=== PATIENT | male | born 1970 | race African-American/Black ===

== ENCOUNTER 2016-06-06 08:04 | Emergency (ER) | payer OTHER ==
[~2016-06-06] VITALS: Ht 182.9 cm; Wt 86.2 kg
[~2016-06-06 08:04] MED LIST: ACETAMINOPHEN500 M3 ORAL; ALBUTEROL SULF8.5 GM INH; AZITHROMYCIN250 MG ORAL; AZITHROMYCIN250 MG PO; GARAMYCIN 0.3%1 DROP BOTH EYES; IBUPROFEN600 MG ORAL; NKM; NORCO 5-325 TA1 EACH ORAL; PHENERGAN/CODE120 ML PO; PROMETHAZINE-C118 M1 ORAL
[2016-06-06] MEDS ORDERED: NKM (08:16)
--- NOTE | 2016-06-06 08:36 | Emergency Room Report ---
History of Present Illness General Chief Complaint: Lower Extremity Injury Source: Patient Present Illness HPI Yesterday the patient twisted his right knee while bending it. He had immediate pain there. He said pain has persisted through the night. He tried taking a bath to help the pain. He is not take any medication. Pain does not radiate. It is mainly on the inside of the knee. There is no significant swelling. He denies any previous injury to his knee. Pain reported 10/10, constant, sharp, not radiating. Drove himself here. No fevers, h/o gout, trauma. No numbness, rash. Sheyla. 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 Nursing Documentation: PMH: Agreed, PSxH: Agreed Nursing Documentation-PMH Past Medical History: No Stated History Review of Systems All Other Systems: negative except mentioned in HPI Physical Exam Vital Signs Date Time Temp Pulse Resp B/P Pulse Ox O2 Delivery O2 Flow Rate FiO2 06/06/16 08:16 98.2 70 16 132/82 99 Sp02 EP Interpretation: reviewed, normal General Appearance: well appearing, no apparent distress Head: normocephalic, atraumatic Eyes: bilateral eye PERRL, bilateral eye normal inspection ENT: hearing grossly normal, normal voice, moist mucus membranes Neck: full range of motion, supple Respiratory: no respiratory distress, speaking full sentences Gastrointestinal: normal inspection Musculoskeletal: back normal, no calf tenderness, pelvis stable, decreased range of mation - R knee, hip and ankle not tender and good ROM, other - neg drawer, neg applies, + medial ligament min lax with meiniscus ten, lateral min tend, no effusion Neurologic: alert, motor strength/tone normal, sensory intact, speech normal Psychiatric: mood/affect normal Skin: no rash Medical Decision Making Diagnostic Impression: Primary Impression: Medial meniscus tear Qualified Codes: S83.241A - Other tear of medial meniscus, current injury, right knee, initial encounter ER Course Patient with pain with twist of knee. Ddx; fracture, sprain, tear, contusion amongst others. xray indicated. Exam is consistent with a medial meniscus tear. Analgesia given, though limited due to driving self. Knee immobilizer placed by tech. Position and application excellent with improvement. Neurovasc checked by me and normal. Told to remove if driving ( advised not to drive). Patient stable for outpatient observation and treatment. Other X-Ray Diagnostic Results Other X-Ray Diagnostic Results : X-Ray Ordered: R knee EP Interpretation: Yes Findings: no fractures, no dislocation, no soft tissue swelling, other - bony bodies, laterally Number of Views: 3 Last Vital Signs Date Time Temp Pulse Resp B/P Pulse Ox O2 Delivery O2 Flow Rate FiO2 06/06/16 09:53 98.3 65 16 125/75 99 Room Air Status: improved Disposition: HOME, SELF-CARE Condition: Improved Scripts Tramadol Hcl* (ULTRAM*) 50 Mg Tablet 50 MG ORAL Q6H Y for For Pain, #6 TAB 0 Refills Prov: Ezra Rodrigez M.D. 06/06/16 Ibuprofen* (MOTRIN*) 600 Mg Tablet 600 MG ORAL Q6H Y for For Pain, #20 TAB Prov: Ezra Rodrigez M.D. 06/06/16 Ezra Rodrigez M.D. Jun 06, 2016 08:36
[2016-06-06 09:30] VITALS: BP 125/75
[2016-06-06] MEDS ORDERED: TRAMADOL HCL50 MG ORAL (09:47)
[2016-06-06] MEDS ORDERED: IBUPROFEN600 MG ORAL (09:47)
[2016-06-06 09:53] VITALS: BP 125/75
--- NOTE | 2016-06-06 13:55 | Diagnostic Imaging Report ---
Indications: TRAUMA Technique: Three views of the knee Comparison: None Findings: No acute fractures. No dislocations. Joint spaces are preserved. No radiopaque foreign body. Normal mineralization. Vascular calcifications are incidentally noted Impression: No acute process This agrees with the preliminary interpretation provided by the emergency room physician
== END 2016-06-06 09:53 | disposition home or self-care (01) ==
LOC: EMR 08:56
DX: S83.241A Other tear of medial meniscus, current injury, right knee, initial encounter (principal); F17.200 Nicotine dependence, unspecified, uncomplicated; X58.XXXA Exposure to other specified factors, initial encounter; Y92.9 Unspecified place or not applicable; Y99.8 Other external cause status
CPT/HCPCS: 29530; 99284

== ENCOUNTER 2017-03-21 07:30 | Emergency (ER) | payer OTHER ==
[~2017-03-21] VITALS: Ht 188 cm; Wt 86.2 kg
[~2017-03-21 07:30] MED LIST changes: +TRAMADOL HCL50 MG ORAL
[2017-03-21] MEDS ORDERED: LIDOCAINE VISC100 ML ORAL (08:27)
[2017-03-21] MEDS ORDERED: 12 HOUR NASAL R15 ML NASAL (08:27)
[2017-03-21] MEDS ORDERED: ADULT WAL-100 MG/5 M ORAL (08:27)
[2017-03-21] MEDS ORDERED: Lidocaine 2% Visc 15ml soln ORAL ONE (08:30)
[2017-03-21 08:45] VITALS: BP 156/78
--- NOTE | 2017-03-26 10:09 | Emergency Room Report ---
History of Present Illness General Chief Complaint: Upper Respiratory Illness Source: Patient Present Illness HPI Patient is a 46-year-old male presented after increased sore throat associated with increased nasal congestion nonproductive cough for the past 2 days. Patient reported having prior episodes of similar symptoms. He reports having some sick contacts at home. He denies any severe headache. He had episode of posttussive emesis. He denied any diarrhea. The patient reports having a moderately sore throat. Allergies: Coded Allergies: No Known Allergies (Unverified , 05/07/12) Patient History Past Medical History: see triage record Reviewed Nursing Documentation: PMH: Agreed, PSxH: Agreed Nursing Documentation-PMH Past Medical History: No Stated History Review of Systems All Other Systems: negative except mentioned in HPI Physical Exam Vital Signs Date Time Temp Pulse Resp B/P (MAP) Pulse Ox O2 Delivery O2 Flow Rate FiO2 03/21/17 07:32 97.7 54 14 150/83 98 Room Air General Appearance: well appearing, no apparent distress, alert, GCS 15 Head: normocephalic, atraumatic ENT: normal ENT inspection, hearing grossly normal, normal pharynx, normal voice, uvula midline, moist mucus membranes, dry mucus membranes Neck: full range of motion, supple Respiratory: chest non-tender, lungs clear, normal breath sounds, no respiratory distress, speaking full sentences Musculoskeletal: no calf tenderness Neurologic: normal gait Psychiatric: mood/affect normal Skin: no rash Medical Decision Making Diagnostic Impression: Primary Impression: Viral respiratory infection ER Course Patient presented for cough. Differential diagnosis included but was not limited to bronchitis, pneumonia, pulmonary embolism, pericarditis, asthma, foreign body. Patient's benign exam and does not appear to require any further imaging or laboratory testing at this time. The patient presented viral upper respiratory infection. The patient was given prescription for decongestants as well as medications for sore throat.The patient is advised to follow up with primary care doctor in 1-2 days. Patient is advised to return if any worsening condition or if any changes in status that are concerning. This report is dictated with [employer] cold type composing machine operator software which may occasionally lead to discrepancies related to use of this software. Last Vital Signs Date Time Temp Pulse Resp B/P (MAP) Pulse Ox O2 Delivery O2 Flow Rate FiO2 03/21/17 08:45 97.7 53 16 156/78 98 Room Air Status: improved Disposition: HOME, SELF-CARE Condition: Stable Scripts Guaifenesin* (ADULT WAL-TUSSIN*) 100 Mg/5 Ml Liquid 5 ML ORAL Q4H, #120 ML Prov: Shay San 03/21/17 Oxymetazoline Hcl* (12 HOUR NASAL RELIEF*) 15 Ml [place] 1 SPRAY NASAL TWICE A DAY for 2 Days, #1 SPRAY Prov: Shay San 03/21/17 Lidocaine HCl 2% Viscous (Lidocaine HCl 2% Viscous) 100 Ml Solution 15 ML ORAL QID, #120 ML Prov: Shay San 03/21/17 Patient Instructions: Upper Respiratory Infection, Adult Shay San Mar 26, 2017 10:09
== END 2017-03-21 08:45 | disposition home or self-care (01) ==
LOC: EMR 07:49
DX: J06.9 Acute upper respiratory infection, unspecified (principal); B97.89 Other viral agents as the cause of diseases classified elsewhere
CPT/HCPCS: 99283

== ENCOUNTER 2017-05-15 07:41 | Emergency (ER) | payer OTHER ==
[~2017-05-15] VITALS: Ht 185.4 cm; Wt 90.7 kg
[~2017-05-15 07:41] MED LIST changes: +12 HOUR NASAL R15 ML NASAL; +ADULT WAL-100 MG/5 M ORAL; +LIDOCAINE VISC100 ML ORAL
[2017-05-15 07:52] VITALS: BP 138/82
--- NOTE | 2017-05-15 08:12 | Emergency Room Report ---
History of Present Illness General Chief Complaint: Pain Source: Patient Present Illness HPI Patient presents with 2 months of left elbow pain. Sometimes wakes him up at night. When he extends it is improved the pain. He denies noting any trauma when this began. He also has some tingling because down to his hand. Sometimes he feels a hand somewhat locks up. He hasn't tried any medication for it. He somewhat concerned about his heart. He does smoke cigarettes. This is not exertional. He occasionally gets muscle spasms in the right shoulder. Pain rated 8/10, intermittent, elbow, medially, radiates to forearm and wrist. R handed. No fevers, dyspnea, NVD, dysuria, rashes. 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 Nursing Documentation: PMH: Agreed, PSxH: Agreed Nursing Documentation-PMH Past Medical History: No Stated History Review of Systems All Other Systems: negative except mentioned in HPI Physical Exam Vital Signs Date Time Temp Pulse Resp B/P (MAP) Pulse Ox O2 Delivery O2 Flow Rate FiO2 05/15/17 07:45 97.9 87 20 142/87 100 Room Air Sp02 EP Interpretation: reviewed, normal General Appearance: well appearing, no apparent distress Head: normocephalic, atraumatic Eyes: bilateral eye normal inspection, bilateral eye PERRL ENT: hearing grossly normal, normal voice, moist mucus membranes Neck: full range of motion, supple, no bony tend Respiratory: no respiratory distress, speaking full sentences Gastrointestinal: normal inspection, scaphoid Musculoskeletal: back normal, digits/nails normal, gait/station normal, normal range of motion, other - Left ulnar nerve tenderness with some tingling with tapping of the area. Neurologic: oriented x3, DTRs symmetric, sensory intact, speech normal, other - Radius, median and ulnar nerve functions are full however subjectively he feels a tingling in the ulnar distribution in the upper forearm. Psychiatric: mood/affect normal Skin: no rash Medical Decision Making Diagnostic Impression: Primary Impression: Cubital tunnel syndrome on left ER Course Patient presents with left elbow discomfort and tingling. Differential includes ulnar gutter (cubital) syndrome, bursitis, arthritis, gout amongst others. He's also concerned about his heart - risk factors are smoking an EKG will be obtained. An x-ray of the elbow be obtained patient will be treated with Motrin here. Xrays normal. EKG no acute changes (LVH). Improved with treatment. Discussed need for further evaluation and physical therapy. Patient stable for outpatient observation and treatment. EKG Diagnostic Results Rate: normal Rhythm: NSR ST Segments: no acute changes - LVH, LAE Rhythm Strip Diag. Results EP Interpretation: yes Rhythm: NSR, no PVC's, no ectopy Other X-Ray Diagnostic Results Other X-Ray Diagnostic Results : X-Ray ordered: L elbow # of Views/Limited Vs Complete: 3 View Indication: Other EP Interpretation: Yes Interpretation: no dislocation, no soft tissue swelling, no fractures Impression: No acute disease Electronically Signed by: Electronically signed by Ezra Rodrigez MD Last Vital Signs Date Time Temp Pulse Resp B/P (MAP) Pulse Ox O2 Delivery O2 Flow Rate FiO2 05/15/17 09:27 55 18 138/83 99 Room Air 05/15/17 09:10 97.8 Status: improved Disposition: HOME, SELF-CARE Condition: Improved Scripts Ibuprofen* (MOTRIN*) 600 Mg Tablet 600 MG ORAL Q6H Y for For Pain, #20 TAB Prov: Ezra Rodrigez M.D. 05/15/17 Ezra Rodrigez M.D. May 15, 2017 08:12
[2017-05-15] MEDS ORDERED: IBUPROFEN600 MG ORAL (08:58)
[2017-05-15 09:27] VITALS: BP 138/83
--- NOTE | 2017-05-15 10:49 | Diagnostic Imaging Report ---
Indications:Reason For Exam: PAIN Technique: Three or 4 views of the left elbow Comparison: None Findings: No acute fractures. No dislocations. The joint spaces are preserved Impression: Negative This agrees with the preliminary interpretation provided by the emergency room physician
--- NOTE | 2017-05-16 19:04 | Cardiology Report ---
APPROVED REPORT EKG Measurement Heart [id number] Normal sinus rhythm Possible Left atrial enlargement Left ventricular hypertrophy Abnormal ECG
== END 2017-05-15 09:27 | disposition home or self-care (01) ==
LOC: EMR 08:24
DX: G56.22 Lesion of ulnar nerve, left upper limb (principal)
CPT/HCPCS: 93005; 99283

== ENCOUNTER 2017-12-23 11:47 | Emergency (ER) | payer OTHER ==
[~2017-12-23] VITALS: Ht 190.5 cm; Wt 86.2 kg
[2017-12-23 12:06] VITALS: BP 121/72
[2017-12-23] MEDS ORDERED: IBUPROFEN600 MG ORAL (12:41)
[2017-12-23] MEDS ORDERED: CLARITIN-D 121 EAC1 ORAL (12:41)
[2017-12-23] MEDS ORDERED: ALBUTEROL SULF8.5 GM INH (12:41)
--- NOTE | 2017-12-23 13:24 | Emergency Room Report ---
History of Present Illness General Chief Complaint: Flu Like Symptoms Source: Patient Present Illness HPI Patient is a 47-year-old male presented after increased congestion and generalized body aches. Patient gradual onset of symptoms. Patient reports having increased congestion. He states he smokes marijuana daily. The patient denies any vomiting or diarrhea. He reports having generalized chills. He denies any abdominal pain. He reports having a moderate nasal congestion associated with a nonproductive cough Allergies: Coded Allergies: No Known Allergies (Unverified , 05/07/12) Patient History Reviewed Nursing Documentation: PMH: Agreed; PSxH: Agreed Nursing Documentation-PMH Past Medical History: No Stated History Review of Systems All Other Systems: negative except mentioned in HPI Physical Exam Vital Signs Date Time Temp Pulse Resp B/P (MAP) Pulse Ox O2 Delivery O2 Flow Rate FiO2 12/23/17 11:57 97.0 63 18 121/72 99 Room Air 97.0 Sp02 EP Interpretation: reviewed General Appearance: well appearing, no apparent distress, alert, GCS 15 Head: normocephalic, atraumatic ENT: hearing grossly normal, normal voice Neck: full range of motion, supple Respiratory: lungs clear, normal breath sounds, no rhonchi, no respiratory distress, speaking full sentences Cardiovascular #1: normal inspection Gastrointestinal: normal inspection, normal bowel sounds, non tender, soft Musculoskeletal: no calf tenderness Neurologic: normal inspection, alert, oriented x3, normal gait Psychiatric: mood/affect normal Skin: no rash Medical Decision Making Diagnostic Impression: Primary Impression: Viral respiratory infection ER Course Patient presented for cough. Differential diagnosis included but was not limited to bronchitis, pneumonia, pulmonary embolism, pericarditis, asthma, foreign body. A chest x-ray one view interpreted by me showed no cardiac size without evident infiltrate. Patient was noted to have normal oxygen saturation. Patient was given ibuprofen for pain. He was given prescription for the medications for symptom treatment. Patient shows no evidence of respiratory distress and does not appear to require laboratory testing at this time. The patient was advised follow-up with his primary care physician is advised to stop smoking.The patient is advised to follow up with primary care doctor in 1-2 days. Patient is advised to return if any worsening condition or if any changes in status that are concerning. This report is dictated with [employer] skein spooler software which may occasionally lead to discrepancies related to use of this software. Last Vital Signs Date Time Temp Pulse Resp B/P (MAP) Pulse Ox O2 Delivery O2 Flow Rate FiO2 12/23/17 12:06 72 18 Room Air 12/23/17 12:06 97.0 121/72 100 97.0 Status: improved Disposition: HOME, SELF-CARE Condition: Stable Scripts Loratadine/Pseudoephedrine (CLARITIN-D 12 HOUR TABLET) 1 Each Tab.er.12h 1 TAB ORAL EVERY 12 HOURS, #20 TAB Prov: Shay San MD 12/23/17 Ibuprofen* (MOTRIN*) 600 Mg Tablet 600 MG ORAL Q8H PRN for For Pain, #30 TAB 0 Refills Prov: Shay San MD 12/23/17 Albuterol Sulfate* (ALBUTEROL SULFATE MDI*) 8.5 Gm Hfa.aer.ad 2 PUFF INH Q6H, #1 EA 0 Refills Prov: Shay San MD 12/23/17 Patient Instructions: Viral Respiratory Infection Shay San MD Dec 23, 2017 13:24
[2017-12-23 13:42] VITALS: BP 158/93
[2017-12-23 13:43] VITALS: BP 134/84
[2017-12-23 13:44] VITALS: BP 134/84
--- NOTE | 2017-12-24 08:24 | Diagnostic Imaging Report ---
Indication: Shortness of breath Technique: One view of the chest Comparison: Findings: Lungs and pleural spaces are clear. Heart size is normal Impression: No acute process
== END 2017-12-23 14:35 | disposition home or self-care (01) ==
LOC: EMR 12:01
DX: J06.9 Acute upper respiratory infection, unspecified (principal)
CPT/HCPCS: 71045; 99283